=== PATIENT | female | born 1945 | race Caucasian/White ===

== ENCOUNTER 2018-02-21 05:21 | Inpatient (IN) ==
[2018-02-21] MEDS ORDERED: Metoprolol Tartrate 25 MG Tablet PO ONE (05:38)
[2018-02-21] MEDS ORDERED: Chlorhexidine Gluconate 2% 1 Pack (2 Cloths) TOPICAL ONE (05:38)
[2018-02-21] MEDS ORDERED: Chlorhexidine 4% Topical 120 APPLIC/120 ML Bottle TOPICAL SCH (05:45)
[2018-02-21] MEDS ORDERED: Tranexamic Acid Inj 800 MG in Sodium Chlor 0.9% Inj 100 ML IV.SIG SCH ×2 (06:00→08:44)
[2018-02-21] MEDS ORDERED: ceFAZolin 2 GM Premix Inj 2 GM/50 ML PIGGYBACK IV.SIG SCH (06:00)
[2018-02-21] MEDS ORDERED: Sodium Chlor 0.9% Inj 500 ML IV.SIG SCH (06:00)
[2018-02-21] MEDS ORDERED: Lidocaine PF 1% Inj 5 ML Vial ONE (06:16)
[2018-02-21] MEDS ORDERED: Propofol Inj 500 MG/50 ML Vial ONE ×2 (06:20→06:21)
[2018-02-21] MEDS ORDERED: fentaNYL Citrate Inj 100 MCG/2 ML Ampul ONE (06:20)
[2018-02-21] MEDS ORDERED: Famotidine PF Inj 20 MG/2 ML Vial ONE (06:21)
[2018-02-21] MEDS ORDERED: fentaNYL Citrate Inj 250 MCG/5 ML Ampul ONE (06:47)
[2018-02-21] MEDS ORDERED: Tranexamic Acid Inj 0 MG in Sodium Chlor 0.9% Inj 100 ML IV.SIG ONE (06:57)
[2018-02-21] MEDS ORDERED: Acetaminophen 325 MG Tablet PO PRN (06:57)
[2018-02-21] MEDS ORDERED: Zolpidem Tartrate 5 MG Tablet PO PRN (06:57)
[2018-02-21] MEDS ORDERED: Post-op Orders (for Pharmacy) OTHER STA (06:57)
[2018-02-21] MEDS ORDERED: Bisacodyl 10 MG Supp RECTAL PRN (06:57)
[2018-02-21] MEDS ORDERED: Morphine Inj 4 MG/ML Vial IV.PUSH PRN (06:57)
[2018-02-21] MEDS ORDERED: Aluminum/Magnesium/Simethacone Susp 30 ML UDC PO PRN (06:57)
[2018-02-21] MEDS ORDERED: Ketorolac Inj 30 MG/ML (IVP) Vial IV.PUSH SCH (07:00)
[2018-02-21] MEDS ORDERED: Sodium Chlor 0.9% Inj 80 ML, Bupivacaine Liposo PF 1.3% Inj 20 ML P-ARTICULR SCH ×2 (07:00)
[2018-02-21] MEDS ORDERED: OMEGA PO SCH (09:00)
[2018-02-21] MEDS ORDERED: COENZYME Q10 75 MG PO SCH (09:00)
[2018-02-21] MEDS ORDERED: [UNRECOGNIZED DRUG - OTHER] PO SCH (09:00)
[2018-02-21] MEDS ORDERED: MV MN FA VIT K LYCOP LUT COQ10 PO SCH (09:00)
[2018-02-21] MEDS ORDERED: FATTY ACIDS PO SCH (09:00)
[2018-02-21] MEDS ORDERED: Hydroxychloroquine 200 MG Tablet PO SCH (09:00)
[2018-02-21] MEDS ORDERED: BETA CAROTENE 10000 UNIT PO SCH (09:00)
--- NOTE | 2018-02-21 09:28 | P.OP ---
- Preoperative Diagnosis (1) Primary osteoarthritis of right knee - Postoperative Diagnosis (1) Primary osteoarthritis of right knee Date of procedure: 02/21/18 Procedure: Right total knee arthroplasty using Rizwan Triathlon prosthesis (uncemented). Anesthesia: GETA, regional (Adductor canal block) Surgeon: Michael Matta MD Upholstery Tech: JAMAR Carbajal Estimated blood loss (mL): 250 Tourniquet time (min): 0 Pathology: none sent Operation and Findings: Indications and Findings: This 72-year-old woman has had progressive worsening of knee pain over the past 8 months with limited ability to ambulate to less than 30 minutes. She has difficulty standing from a seated position and difficulty ascending and descending's stairs. She has noted a progressive valgus deformity in her knee. She has not responded to conservative measures including anti-inflammatory agents analgesics, activity modification, exercise and ambulatory aids. Physical findings showed genu valgum on the right with crepitation on range of motion, lateral laxity and an intra-articular effusion. There is tenderness on motion and tenderness to palpation in the medial and lateral compartments. X-rays showed significant arthritis in the right knee with loss of articular cartilage to about a millimeter on the PA flexion view with medial lateral and patellofemoral osteophytes. There was some lateral eburnation. Physical findings showed Operative findings: There was tricompartmental arthritis with osteophytes in all compartments and areas of loss of articular cartilage in the medial, lateral and patellofemoral compartments. There is exposed subchondral bone medially and laterally. There seem to be more degeneration laterally The prosthesis used was a Rizwan Triathlon prosthesis. The femur was a size 4, cruciate retaining, uncemented. The tibial baseplate was a size 4 Tritanium with a cruciate retaining 11 mm X3 polyethylene spacer. The patella was a size 32 mm asymmetric Tritanium backed. The patient was brought to the clean-air operating suite after administration of a regional anesthetic by adductor canal block. A spinal anesthetic was administered. The position was supine with a small bolster under the hip on the operative side. A pneumatic tourniquet was applied to the upper thigh. The lower extremity was prepped with alcohol, Hibiclens and ChloraPrep and draped in the usual manner with the knee draped free. An appropriate timeout procedure was carried out. An incision was made from about 3 fingerbreadths above the superior medial pole of patella down the tibial tubercle on the medial side. The incision was deepened through the subcutaneous tissue to the retinacular structures which were exposed medially and laterally. A medial retinacular incision was made from the superior medial pole of patella down the tibial tubercle and up into the quadriceps tendon, splitting it longitudinally in the medial one third. The patella was reflected. The infrapatellar fat pad was debulked. The anterior cruciate ligament was excised. Medial and lateral meniscectomies were initiated. Fenestrations were made in the distal femur and proximal tibia for intramedullary referencing guides. The distal femoral cutting guide and jig were assembled for a 5, 8 mm cut. When this was fit into position,the cutting block was stabilized with pins. The jig was removed. The distal femoral cut was completed with the oscillating saw. The sizing guide was positioned in place along Whitesides line and the epicondylar axis and stabilized with pins. The femoral size was determined as noted above. The 4-in-1 cutting block was positioned in place. Anterior and posterior cuts were made followed by posterior and anterior chamfer cuts taking care to prevent injury to ligamentous structures. Osteophytes were trimmed from the distal femur. A bone plug was placed into the fenestration of the distal femur. The proximal tibia was exposed. The medial and lateral meniscectomies were completed. The proximal tibial cutting guide was positioned in place and stabilized with a pin for rotation. The depth of cut was verified with a stylus off the high side. The cutting block was stabilized with pins. The jig was removed. The depth of cut was verified and adjusted appropriately with the use of the spacer block. The proximal tibial cut was made with the oscillating saw taking care to prevent injury to neurovascular and ligamentous structures. Proximal tibial bone was removed. Local anesthetic was administered with Exparel in the posterior capsule. The tibial baseplate trial was positioned in place. After verifying the appropriate size, the base plate trial was positioned in place along with its spacer. The femoral component was impacted into place. The alignment was checked. There was some relative medial laxity compared to the lateral side. A recut of the tibia allowed for better flexion. With an [address] and trial prostheses in place, pie crusting of the iliotibial band was carried out in the usual manner. This improved the stability substantially. The tibial baseplate was pinned in place on the tibia. Attention was directed to the patella. The patella drill guide was positioned in place for the appropriate sized patella. Patellar drilling was then carried out. The trial patella was positioned in place. The knee was taken through a range of motion which was easily 0 extension to 145 degrees. The patella trial was removed. The femoral drill holes were made. The femoral trials were removed. The tibial spacer was removed. A bone plug was placed into the proximal tibia. The tibial punch was impacted through the proximal tibial punch guide. This was all removed followed by placement of the tibial drill guide. The tibial drill holes were made. The guide was removed. The cut ends of bone were cleaned with pulse lavage. The tibial baseplate was impacted into place and seated appropriately. The spacer was inserted. The the femoral component was impacted into place and seated appropriately. The patella component was seated with the patellar vice and tightened appropriately. The knee was taken through a range of motion which was comparable to the previous range of motion with excellent stability in flexion and extension and appropriate patellofemoral tracking. The remainder of the Exparel was injected throughout the knee as a local anesthetic. Drains were brought out the superior lateral aspect of the suprapatellar pouch. Wound closure commenced using 0 Vicryl interrupted [id number] sutures for the capsular and fascial structures, 2-0 Vicryl interrupted simple sutures with buried knots for the subcutaneous tissues and 4-0 Monocryl, continuous subcuticular closure for the skin. The wound was dressed with Dermabond Prineo followed by a dry sterile dressing. Sterile soft roll with a cooling pad and Low bandage from the base of the toes to mid thigh were applied. Patient was transferred from the operating room to the recovery room in satisfactory condition having tolerated procedure well. Counts were correct. Specimens: None. Estimated blood loss: 250 milliliters
--- NOTE | 2018-02-21 09:30 | P.DCO ---
- Physical Therapy Physical Therapy: Gait training Knee: Total knee, Protocol: Right, Gait training, Full weight bearing Right Lower Extremity Weight Bearing: Weight bearing as tolerated Right Lower Extremity Range of Motion: Active ROM (Active, active assisted and passive range of motion. Range of motion goal is 0 degrees extension to 135 degrees of flexion.) - Nursing Nursing: Dressing changes Dressing changes: Other (Do not remove Dermabond Prineo (the tape that is directly on the wound).Leave the Optifoam dressing in place for 7 days. After this, daily dressing changes will be done taking care to avoid injuring or removing the Dermabond Prineo.) - Certification Need for Home Health services: I have seen patient Traci Ramos on 02/21/18. My clinical findings support the need for the requested home health care services because: Need for Home Health Services: Limited mobility due to disease progression, Limited ability to care for self, High risk of falls Homebound Certification: I certify that my clinical findings support that this patient is homebound because: Homebound Certification: Post-op weakness, Unsteady gait/balance, Unsafe to leave home unassisted
[2018-02-21] MEDS ORDERED: *morphine SULFATE 10 MG/ML PERIprocedure ONLY ONE ×3 (10:06→10:25)
--- NOTE | 2018-02-21 10:20 | XR ---
EXAM DATE: 02/21/2018 10:16 AM EST AGE/SEX: 72 years / Female INDICATIONS: Post right total knee arthroplasty CLINICAL DATA: This is the patient's initial encounter. Patient reports that signs and symptoms have been present for 1 day and indicates a pain score of Nonresponsive. MEDICAL/SURGICAL HISTORY: Non-responsive. Non-responsive. COMPARISON: No prior exams available for comparison. FINDINGS: There is a knee prosthesis in place. There is good position of the prosthesis with the bony structure s. Postsurgical changes are demonstrated. The bony structures are grossly intact. CONCLUSION: Good position and alignment on this postoperative study. Electronically signed by: Flash Goodman MD Board Certified Radiologist 02/21/2018 10:19 AM EST
[2018-02-21] MEDS: Ketorolac Inj 30 MG/ML (IVP) Vial IV.PUSH SCH ×3 (10:45→22:02)
[2018-02-21] MEDS: Hydroxychloroquine 200 MG Tablet PO SCH (11:52)
[2018-02-21] MEDS ORDERED: ceFAZolin Inj 1 GM in Sodium Chlor 0.9% Inj 100 ML IV.SIG SCH (13:00)
[2018-02-21] MEDS: ceFAZolin 1 GM Premix Inj 1 GM/50 ML PIGGYBACK IV.SIG SCH ×2 (13:11→18:50)
--- NOTE | 2018-02-21 17:54 | P.CON ---
History of Present Illness Service: [facility] Consult date: 02/21/18 Requesting Physician: Michael Matta Reason for Consult: Medical management Primary Care Provider: Lam An MD Chief Complaint: Knee surgery History of Present Illness: 72-year-old female with past medical history significant for osteoarthritis, GERD, hypercholesteremia, vertigo, Sjgren syndrome and thyroid adenoma admitted 02/21 for total right knee arthroplasty by Dr. Ocampo. [facility] has been consulted to assist with medical management during her stay. Patient is seen and examined sitting up in bed in no acute distress with daughter at bedside. She reports she has been up now 3 times, her pain is well controlled. She endorses dizziness, states this is not her normal vertigo, also complains of feeling sleepy. She has been able to eat, but not very hungry, complains of scratchy throat. She also reports feeling like her food is getting stuck and points to epigastric area. Denies any nausea, vomiting, cough, SOB, fevers chills, or dysuria. Voices no other acute concerns at this moment. Review of Systems All other systems reviewed negative except as stated in HPI PMFSH - History History Provided By: Patient - Medical History Medical History: Medical History (Last Updated 02/21/18 @ 18:17 by Prabhu Pederson) Hypothyroidism Arthritis Dental bridge present GERD (gastroesophageal reflux disease) High cholesterol Sjogrens syndrome Vertigo Wears glasses - Surgical History Surgical History: Surgical History (Last Reviewed 02/21/18 @ 18:18 by Prabhu Pederson) H/O eye surgery H/O medial meniscus repair of left knee H/O shoulder surgery Hx of tonsillectomy Status post excision of thyroid adenoma - Social History I have reviewed the patient's Social History: Yes - Tobacco History Second Hand Smoke Exposure: No Tobacco Use In Past 30 Days: No Smoking Status: Never smoker - Alcohol History How Often Do You Have a Drink Containing Alcohol: Never - Substance Use History Substance History: No History of Abuse - Travel History Recent Travel in the [place] Within the Last 8 Weeks: Yes Recent Travel Out of the Country Within the Last 8 Weeks: No - Immunization History Hx Influenza Vaccine This Season: No Medications and Allergies Active Medications: Active Medications Acetaminophen (Tylenol) 650 mg PO Q6H PRN PRN Reason: Pain Less Than 3 On Scale Hydrocodone Bitart/Acetaminophen ([place] 7.5/325) 1 tab PO Q4H PRN PRN Reason: PAIN SCALE 4 TO 6 MODERATE Last Admin: 02/21/18 15:15 Dose: 1 tab Hydrocodone Bitart/Acetaminophen ([place] 7.5/325) 2 tab PO Q6H PRN PRN Reason: PAIN SCALE 7 TO 10 SEVERE Al Hydrox/Mg Hydrox/Simethicone (Mag-Al Plus Susp Liq) 30 ml PO Q6H PRN PRN Reason: INDIGESTION Al Hydroxide/Mg Hydroxide (Milk Of Magnesia Liq) 30 ml PO BID PRN PRN Reason: Mild Constipation Ascorbic Acid (Vitamin C) 1,000 mg PO DAILY [facility] Aspirin (Aspirin Chew) 81 mg PO BID [facility] Last Admin: 02/21/18 10:45 Dose: 81 mg Bisacodyl (Dulcolax Supp) 10 mg RECTAL DAILY PRN PRN Reason: SEVERE CONSITIPATION Chlorhexidine Gluconate (Hibiclens 4% Topical) 1 applicatio TOPICAL ONCE [facility] Stop: 02/25/18 05:44 Last Admin: 02/21/18 05:45 Dose: 1 applicatio Diphenhydramine HCl (Benadryl) 25 mg PO Q6H PRN PRN Reason: ITCHING Hydroxychloroquine Sulfate (Plaquenil) 200 mg PO DAILY [facility] Last Admin: 02/21/18 11:52 Dose: 200 mg Sodium Chloride (Ns Inj) 500 mls @ 30 mls/hr IV.SIG .Q10H [facility] Last Admin: 02/21/18 06:19 Dose: Not Given Lactated Ringer's (Lr 1000 Ml Inj) 1,000 mls @ 30 mls/hr IV.SIG .Q24H [facility] Stop: 02/22/18 05:44 Last Admin: 02/21/18 05:45 Dose: 30 mls/hr Cefazolin Sodium/Dextrose (Ancef 2 Gm Premix Inj) 2 gm in 50 mls @ 100 mls/hr IV.SIG CLERICAL ADVISER [facility] Stop: 02/25/18 05:59 Last Infusion: 02/21/18 07:33 Dose: Infused Lactated Ringer's (Lr 1000 Ml Inj) 1,000 mls @ 80 mls/hr IV.CONT .[id number] [facility] Last Admin: 02/21/18 10:39 Dose: Not Given Cefazolin Sodium/Dextrose (Ancef 1 Gm Premix Inj) 1 gm in 50 mls @ 200 mls/hr IV.SIG Q6H [facility] Stop: 02/22/18 01:14 Last Admin: 02/21/18 13:11 Dose: 200 mls/hr Ketorolac Tromethamine (Toradol Inj) 15 mg IV.PUSH Q6H [facility] Stop: 02/23/18 04:01 Last Admin: 02/21/18 10:45 Dose: 15 mg Lactulose (Lactulose Liq) 30 ml PO DAILY PRN PRN Reason: SEVERE CONSITIPATION Levothyroxine Sodium (Synthroid) 25 mcg PO DAILY@0600 [facility] Meclizine HCl (Antivert) 25 mg PO DAILY PRN PRN Reason: VERTIGO Miscellaneous Information ([facility]) 1 each OTHER UNSCH PRN PRN Reason: SEE LABEL COMMENTS Stop: 02/22/18 09:54 Morphine Sulfate (Morphine Inj) 2 mg IV.PUSH Q3H PRN PRN Reason: BREAKTHROUGH PAIN Multivitamins/Minerals (Theragran-M) 1 tab PO DAILY [facility] Ondansetron HCl (Zofran Odt) 4 mg PO Q6H PRN PRN Reason: NAUSEA OR VOMITING Pantoprazole Sodium (Protonix) 40 mg PO DAILY [facility] Senna/Docusate Sodium (Emlanie-Colace) 1 tab PO BID [facility] Sennosides (Senokot) 17.2 mg PO BID PRN PRN Reason: Moderate Constipation Sodium Chloride (Ns Flush) 2 ml IV.FLUSH BID [facility] Last Admin: 02/21/18 10:46 Dose: 2 ml Sodium Chloride (Ns Flush) 2 ml IV.FLUSH PRN PRN PRN Reason: FLUSH AFTER USING IV ACCESS Vitamin E (Vitamin E) 400 unit PO DAILY [facility] Zolpidem Tartrate (Ambien) 5 mg PO HS PRN PRN Reason: INSOMNIA Allergies Allergy/AdvReac Type Severity Reaction Status Date / Time No Known Allergies Allergy Verified 02/21/18 05:53 Home Medications Medication Instructions Recorded Confirmed Type ascorbic acid (vitamin C) [Vitamin 1,000 mg PO DAILY 02/07/18 02/21/18 History C] beta carotene 10,000 unit PO DAILY 02/07/18 02/21/18 History calcium carb,cit-mag cit,ox-D3 1 tab PO DAILY 02/07/18 02/21/18 History [Veto-Mag Complex] coenzyme Q10 [Ultra CoQ10] 75 mg PO DAILY 02/07/18 02/21/18 History diclofenac sodium 75 mg PO DAILY 02/07/18 02/21/18 History hydroxychloroquine 200 mg PO DAILY 02/07/18 02/21/18 History levothyroxine 25 mcg PO DAILY 02/07/18 02/21/18 History meclizine 25 mg PO DAILY PRN 02/07/18 02/21/18 History multivitamin with minerals 1 tab PO DAILY 02/07/18 02/21/18 History [Hair,Skin and Nails] zn-ft-QO-vit [id number]-[id number]-coQ10 1 tab PO DAILY 02/07/18 02/21/18 History [Daily Multivitamin] omega-3 fatty acids [Super [place]-3] 1,000 mg PO DAILY 02/07/18 02/21/18 History omeprazole 40 mg PO DAILY 02/07/18 02/21/18 History vitamin E 400 unit PO DAILY 02/07/18 02/21/18 History Physical Exam Vital signs: Vital Signs 02/21/18 05:40 02/21/18 06:20 02/21/18 09:55 Temperature 98.6 F 97.6 F Pulse Rate 74 74 99 H Respiratory Rate 16 13 Blood Pressure 136/83 144/69 H Pulse Oximetry 99 98 100 02/21/18 10:15 02/21/18 10:30 02/21/18 11:00 Temperature 97.8 F Pulse Rate 80 69 73 Respiratory Rate 15 12 12 Blood Pressure 132/68 127/67 122/64 Pulse Oximetry 93 L 97 97 02/21/18 11:56 02/21/18 12:00 02/21/18 16:00 Temperature 97.2 F L Pulse Rate 73 60 Respiratory Rate 18 18 16 Blood Pressure 148/79 H 120/58 L Pulse Oximetry 96 97 Intake & Output 02/20/18 02/21/18 02/21/18 18:59 06:59 18:59 Intake Total 1700 / 1700 Output Total 350 / 350 Balance 1350 / 1350 Weight 80.2 kg 28.5 kg Intake: IV 158 / 158 Cyklokapron Inj 800 MG In NS 108 / 108 Inj 100 ML @ 200 mls/hr IV.SIG ONCE [facility] Rx#:[id number] Ancef 2 GM Premix Inj 2 gm In 50 / 50 50 ml @ 100 mls/hr IV.SIG CLERICAL ADVISER [facility] Rx#:[id number] Anesthesia Amount 1542 / 1542 Output: Estimated Blood Loss 250 / 250 Wound Drainage 100 / 100 # 1 Right Knee Hemovac 100 / 100 Other: Weight On Admission 80.2 kg Narrative: GENERAL: Well nourished/developed female sitting up in bed in no acute distress. SKIN: Warm and dry. HEAD: Atraumatic. Normocephalic. EYES: Pupils equal and round. No scleral icterus. No injection or drainage. ENT: No nasal bleeding or discharge. Oropharynx with no edema or erythema. Mucous membranes pink and moist. NECK: Trachea midline. No JVD. CARDIOVASCULAR: Regular rate and rhythm. RESPIRATORY: No accessory muscle use. Clear to auscultation. Breath sounds equal bilaterally. GASTROINTESTINAL: Abdomen soft, non-tender, nondistended. + Bowel sounds MUSCULOSKELETAL: Extremities without clubbing or edema. Right knee with accordion drain and ADRIAN wrap in place. Dorsalis pedis pulse +, + sensation and movement. NEUROLOGICAL: Awake, alert, oriented x3. No obvious cranial nerve deficits. Motor grossly within normal limits. Five out of 5 muscle strength in the arms and legs. Normal speech. PSYCHIATRIC: Appropriate mood and affect; insight and judgment normal. Results - Labs Labs: Laboratory Results - last 24 hr 02/21/18 06:01 Blood Type A Positive Blood Type Recheck Required Antibody Screen Negative - Imaging Impressions Knee X-Ray 02/21/18 06:56 CONCLUSION: Good position and alignment on this postoperative study. Assessment and Plan - Plan 72-year-old female with past medical history significant for osteoarthritis, GERD, hypercholesteremia, vertigo, Sjgren syndrome and thyroid adenoma admitted 02/21 for total right knee arthroplasty by Dr. Ocampo. [facility] has been consulted to assist with medical management during her stay. Osteoarthritis -s/p total right knee arthroplasty by Dr. Ocampo 02/21 -Precautions per orthopedic services -Pain control with [place] -PT consult GERDcontinue Protonix Vertigocontinue home dose meclizine as needed Hypothyroidism, chroniccontinue levothyroxine Dizziness with Hx vertigo - Likely secondary to pain medication, discussed safety ?dysphagia - Possible soreness due to ETT - Monitor if needed consult speech for evaluation - Continue PPI DVT prophylaxisaspirin twice daily per orthopedic services. Thank you for this consultation, will continue to follow along. Discussed Condition With: Patient and daughter at bedside.
[2018-02-21] MEDS: Senna/Docusate Sodium 8.6/50 MG Tablet PO SCH (21:16)
[2018-02-22] MEDS: ceFAZolin 1 GM Premix Inj 1 GM/50 ML PIGGYBACK IV.SIG SCH (00:16)
[2018-02-22] MEDS: Ketorolac Inj 30 MG/ML (IVP) Vial IV.PUSH SCH ×4 (04:05→22:18)
[2018-02-22 04:18] LABS: Hematocrit 31.4 % (35.0-46.0); Hemoglobin 10.6 gm/dL (11.6-15.3)
--- NOTE | 2018-02-22 06:04 | P.PNOP ---
Subjective Interval history: Postop day #1 She is doing relatively well. She has been up to the bathroom without much difficulty. She has questions about imitations and activities. She is starting to get some pain since the block effect is abating. Physical therapy reports that the ambulation distance was 30 feet. The range of motion was 0 degrees of extension to 100 degrees of flexion. Physical Exam Vital signs: Vital Signs 02/21/18 06:20 02/21/18 09:55 02/21/18 10:15 Temperature 97.6 F Pulse Rate 74 99 H 80 Respiratory Rate 13 15 Blood Pressure 144/69 H 132/68 Pulse Oximetry 98 100 93 L 02/21/18 10:30 02/21/18 11:00 02/21/18 11:56 Temperature 97.8 F Pulse Rate 69 73 Respiratory Rate 12 12 18 Blood Pressure 127/67 122/64 Pulse Oximetry 97 97 02/21/18 12:00 02/21/18 16:00 02/21/18 18:50 Temperature 97.2 F L Pulse Rate 73 60 Respiratory Rate 18 18 18 Blood Pressure 148/79 H 120/58 L Pulse Oximetry 96 97 02/21/18 19:30 02/22/18 00:00 02/22/18 03:45 Temperature 97.7 F 97.7 F 98 F Pulse Rate 69 79 66 Respiratory Rate 18 18 18 Blood Pressure 122/63 115/56 L 110/54 L Pulse Oximetry 95 96 98 Intake & Output 02/21/18 02/21/18 02/22/18 06:59 18:59 06:59 Intake Total 2710 / 2710 100 / 100 Output Total 350 / 350 100 / 100 Balance 2360 / 2360 0 / 0 Weight 80.2 kg 28.5 kg Intake: IV 208 / 208 100 / 100 Cyklokapron Inj 800 MG In NS 108 / 108 Inj 100 ML @ 200 mls/hr IV.SIG ONCE [facility] Rx#:[id number] Ancef 1 GM Premix Inj 1 gm In 50 / 50 100 / 100 50 ml @ 200 mls/hr IV.SIG Q6H [facility] Rx#:[id number] Ancef 2 GM Premix Inj 2 gm In 50 / 50 50 ml @ 100 mls/hr IV.SIG GUIDE TRAVEL [facility] Rx#:[id number] Oral 960 / 960 Anesthesia Amount 1542 / 1542 Output: Estimated Blood Loss 250 / 250 Wound Drainage 100 / 100 100 / 100 # 1 Right Knee Hemovac 100 / 100 100 / 100 Other: # Voids 2 Weight On Admission 80.2 kg Narrative: She is resting comfortably, supine in bed. The dressing is dry and intact. Her neurovascular status is intact. She is attended by her daughter. Results - Labs CBC & Chem 7: 02/22/18 03:30 Laboratory Results - last 24 hr 02/21/18 02/22/18 06:01 03:30 Hgb 10.6 L Hct 31.4 L Blood Type A Positive Blood Type Recheck Required Antibody Screen Negative - Imaging Impressions Knee X-Ray 02/21/18 06:56 CONCLUSION: Good position and alignment on this postoperative study. - Procedures Right total knee arthroplasty using Rizwan Triathlon prosthesis (uncemented) on 02/21/2018. Assessment and Plan - Ortho Post Op Day # 1 - Problem List (1) Status post total right knee replacement not using cement Code(s): Z96.651 - Presence of right artificial knee joint Status: Acute Onset Date: ~02/21/18 Plan: Continue postop care and PT. Discussed the findings with her as well as plans. - Assessment and Plan Condition: Good. Orthopedically stable. DVT prophylaxis: TEDs, aspirin, sequentials. Discharge plans: Home with home health care. An appointment was scheduled through the office. Prescriptions: [place] 7.5/325; Patient is having significant pain caused by a total knee arthroplasty which will last more than 3 days. Trial of Tylenol has not helped. I believe that it is medically necessary to treat patients pain because it is affecting patients ability to participate in postoperative rehabilitation and perform activities of daily living in a comfortable and efficient manner. I have checked the [facility] database prior to completing the prescription.
--- NOTE | 2018-02-22 06:41 | P.DS ---
Date of admission: 02/21/18 07:16 Primary care physician: Lam An MD Attending physician on discharge: Michael Matta Anticipated date of discharge: 02/23/18 Brief History from admission: This 72-year-old woman has had a long history of Sjogren's disease and osteoarthritis with a progressive increase in pain in the right knee along with a progressive valgus deformity. She has difficulty with walking and activities of daily living including ascending and descending stairs, standing from a seated position and vice versa and walking in general. She has not responded to conservative measures including anti-inflammatory agents, analgesics, activity modification and exercise. She has a valgus deformity with tenderness on motion and crepitation on motion. There is limited motion as well. Her gait was antalgic. Radiographic findings showed significant loss of articular cartilage to virtually [id number] osteophytes throughout the knee. There was some eburnation. DS: Diagnosis - Discharge Diagnosis (1) Status post total right knee replacement not using cement Status: Acute Diagnosis: Principal (2) Primary osteoarthritis of right knee Status: Chronic Diagnosis: Principal DS: Medications - Discharge Medications Prescriptions: hydrocodone-acetaminophen 1 tab PO Q4H PRN 7 Days #42 tab PRN Reason: Pain, Severe DS: Summary Hospital Course: The patient was admitted as noted above. The above noted operative procedure was carried out that day. Preoperatively prophylactic antibiotics were administered Ancef according to protocol. These were continued postoperatively. The patient also received tranexamic acid to help with hemostasis according to protocol. In the postanesthesia care unit mechanical methods of DVT prophylaxis were initiated in the form of SARAI stockings and sequentials. Physical therapy was initiated on the day of surgery. On postoperative day #1 physical therapy continued. DVT prophylaxis with aspirin 81 mg was initiated at this time. The patient continued physical therapy throughout the hospitalization. The distance walked and range of motion improved throughout the hospitalization. The patient was discharged on postoperative day 2 with the disposition being to home with home health care. An appointment for follow-up was made prior to admission. - Time Spent with Patient Total time spent providing and/or coordinating discharge services: Less than 30 minutes - Quality: VTE Deep Vein Thrombosis/Pulmonary Embolism Present on Admission: No Exam Vital signs: Vital Signs 02/21/18 09:55 02/21/18 10:15 02/21/18 10:30 Temperature 97.6 F Pulse Rate 99 H 80 69 Respiratory Rate 13 15 12 Blood Pressure 144/69 H 132/68 127/67 Pulse Oximetry 100 93 L 97 02/21/18 11:00 02/21/18 11:56 02/21/18 12:00 Temperature 97.8 F 97.2 F L Pulse Rate 73 73 Respiratory Rate 12 18 18 Blood Pressure 122/64 148/79 H Pulse Oximetry 97 96 02/21/18 16:00 02/21/18 18:50 02/21/18 19:30 Temperature 97.7 F Pulse Rate 60 69 Respiratory Rate 18 18 Blood Pressure 120/58 L 122/63 Pulse Oximetry 97 95 02/22/18 00:00 02/22/18 03:45 Temperature 97.7 F 98 F Pulse Rate 79 66 Respiratory Rate 18 18 Blood Pressure 115/56 L 110/54 L Pulse Oximetry 96 98 Intake & Output 02/21/18 02/21/18 02/22/18 06:59 18:59 06:59 Intake Total 2710 / 2710 240 / 240 Output Total 350 / 350 100 / 100 Balance 2360 / 2360 140 / 140 Weight 80.2 kg 28.5 kg 95.5 kg Intake: IV 208 / 208 100 / 100 Cyklokapron Inj 800 MG In NS 108 / 108 Inj 100 ML @ 200 mls/hr IV.SIG ONCE LISHA Rx#:[id number] Ancef 1 GM Premix Inj 1 gm In 50 / 50 100 / 100 50 ml @ 200 mls/hr IV.SIG Q6H LISHA Rx#:[id number] Ancef 2 GM Premix Inj 2 gm In 50 / 50 50 ml @ 100 mls/hr IV.SIG COAL CUTTING MACHINE OPERATOR LISHA Rx#:[id number] Oral 960 / 960 140 / 140 Anesthesia Amount 1542 / 1542 Output: Estimated Blood Loss 250 / 250 Wound Drainage 100 / 100 100 / 100 # 1 Right Knee Hemovac 100 / 100 100 / 100 Other: # Voids 2 2 # Bowel Movements 0 Weight On Admission 80.2 kg Narrative: She is resting comfortably, supine in bed. The dressing is dry and intact. Her neurovascular status is intact. She is attended by her daughter. Results Procedures completed during hospitalization: Right total knee arthroplasty using [place] Triathlon prosthesis (uncemented) on 02/21/2018. Labs on day of discharge: Labs from last 24 hours 02/22/18 02/21/18 03:30 06:01 Hgb 10.6 L Hct 31.4 L Blood Type A Positive Blood Type Recheck Required Antibody Screen Negative - Impressions ITS Impressions Knee X-Ray 02/21/18 06:56 CONCLUSION: Good position and alignment on this postoperative study. Discharge Plan - Discharge Disposition Patient Disposition: W/Home Health Service - Discharge Condition Condition: Stable - Discharge Order Discharge Orders: Discharge Order (Routine); Ordered 02/22/18 Ordered By: Michael Matta - Discharge Details Anticipated Discharge Date: 02/22/18 - Physicians Team Primary Care Provider: Lam An Attending Provider: Michael Matta Other Providers: Isaiah Colon ; Gabriel Rose MD - Rxs /Orders / Referrals /Forms Prescriptions: New aspirin 81 mg Tablet,Chewable 81 mg PO BID RF: 0 hydrocodone-acetaminophen 7.5-325 mg Tablet 1 tab PO Q4H PRN (Reason: Pain, Severe) 7 Days Qty: 42 RF: 0 Continue ascorbic acid (vitamin C) [Vitamin C] 1,000 mg Tablet 1,000 mg PO DAILY beta carotene 10,000 unit Capsule 10,000 unit PO DAILY calcium carb,cit-mag cit,ox-D3 [Veto-Mag Complex] 300 mg-150 mg- 400 unit Tablet 1 tab PO DAILY coenzyme Q10 [Ultra CoQ10] 75 mg Capsule 75 mg PO DAILY diclofenac sodium 75 mg Tablet,Delayed Release (Dr/Ec) 75 mg PO DAILY hydroxychloroquine 200 mg Tablet 200 mg PO DAILY levothyroxine 25 mcg Tablet 25 mcg PO DAILY meclizine 25 mg Tablet 25 mg PO DAILY PRN (Reason: Vertigo) multivitamin with minerals [Hair,Skin and Nails] Tablet 1 tab PO DAILY az-fz-NB-vit C-lzqhu-kft-coQ10 [Daily Multivitamin] 200-100-500 mcg Capsule 1 tab PO DAILY omega-3 fatty acids [Super [place]-3] 1,000 mg Capsule 1,000 mg PO DAILY omeprazole 40 mg Capsule,Delayed Release(Dr/Ec) 40 mg PO DAILY vitamin E 400 unit Capsule 400 unit PO DAILY Referrals: Lam An MD [Primary Care Provider] - See Instructions Michael Matta MD [Physician] - See Instructions - Discharge Instructions Patient Printed Instructions: Hydrocodone/Acetaminophen (By mouth), Aspirin ( By mouth), How to Choose and Use a Walker (GEN), Knee Replacement (DC) Additional Instructions: Rx for [place] 7.5/325mg (42) given at time of discharge. Take medications as prescribed. Full weight bearing Follow up with Dr Matta as previously discussed. Home Health Care to be provided by: Michael. [phone] - Post Discharge Care Plan Care Plan Goals: Discharge Care Plan Goals for Total Knee Replacement You have undergone knee replacement surgery. Your doctor replaced your painful joint with an artificial joint to relieve pain and restore movement. Here are some goals to help you heal well. Directions to Meet your Goals: 1. Activity & Exercises: * Take pain medicine as directed by your doctor. * Sit in chairs with arms. The arms make it easier for you to stand up or sit down. * Dont sit for more than 30 to 45 minutes at one time. * Nap if you are tired, but dont stay in bed all day. * Sleep with a pillow under your ankle, not your knee. Be sure to change the position of your leg during the night. * Wear the support stockings you were given in the hospital as directed by your surgeon. 2. Prevent Falls/Injury: The casarez to successful recovery is movement with walking and exercising your knee as directed by your doctor. * Arrange your household to keep the items you need handy. Keep everything else out of the way. * Remove items that may cause you to fall, such as throw rugs and electrical cords. * Use nonslip bath mats, grab bars, an elevated toilet seat, and a shower chair in your bathroom * Sit on a shower stool or chair when you shower to keep from falling. * Until your balance, flexibility, and strength improve, use a cane, crutches, a walker, handrails, or someone to help you. * Keep your hands free by using a backpack, denise pack, apron, or pockets to carry things * Walk up and down stairs with support. Try one step at a time. Use the railing if possible. * Dont drive until your doctor says its OK. * Dont drive while you are taking opioid pain medicine. 3. Precautions: * Prevent infection. Any infection will need to be treated immediately. Call your doctor right away if you think you might have an infection. * Tell your dentist that you have an artificial joint and take antibiotics as prescribed before any dental work. * Tell all your healthcare providers about your artificial joint before any medical procedure. * Maintain a healthy weight. Get help to lose any extra pounds. Added body weight puts stress on the knee. * Your medications may include blood-thinning medicine to prevent blood clots or antibiotics to prevent infection-prevent any falls or cuts 4. Incision Care: * Prevent infection by washing your hands often. If an infection occurs, it will need to be treated right away. * Call your doctor right away if you think you may have an infection. Symptoms include a fever or an incision that leaks white, green, or yellow fluid. * Don't soak your incision in water until your doctor says its OK. This means no hot tubs, bathtubs, or swimming pools. * Follow your doctor's instructions for changing the dressing. * Dont rub the incision, or apply creams or lotions to it. * If you notice any redness or drainage around the bandage site, contact your surgeon's office immediately. 5. Follow-Up: Do Not miss your follow-up appointment. Keep up with all your appointments and yearly check ups When to call your doctor: Call your doctor right away if you have: Fever of 100.4F (38C) or higher, or as directed by your doctor Shaking chills Stiffness, or inability to move the knee Increased swelling in your leg Increased redness, tenderness, or swelling in or around the knee incision Drainage from the knee incision Increased knee pain Call 911: Call 911 right away if you have: Chest pain Shortness of breath Any pain or tenderness in your calf
[2018-02-22] MEDS: Multivitamin/Minerals Therapeutic Tablet PO SCH (08:02)
[2018-02-22] MEDS: Ascorbic Acid 500 MG Tablet PO SCH (08:03)
[2018-02-22] MEDS: Senna/Docusate Sodium 8.6/50 MG Tablet PO SCH ×2 (08:04→20:07)
[2018-02-22] MEDS: Hydroxychloroquine 200 MG Tablet PO SCH (10:31)
--- NOTE | 2018-02-22 14:56 | P.PN ---
Subjective Interval history: Follow-up visit for total right knee arthroplasty. Patient seen and examined sitting up in bed in no acute distress. Continues to complain of right knee pain especially today after therapy. Denies any fevers, chills, nausea, vomiting or diarrhea. Complains of GERD, states pantoprazole does not work as well as her omeprazole from home. Daughter to bring this in tonight. Likely discharge home tomorrow. Physical Exam Vital signs: Vital Signs 02/21/18 16:00 02/21/18 18:50 02/21/18 19:30 Temperature 97.7 F Pulse Rate 60 69 Respiratory Rate 18 18 18 Blood Pressure 120/58 L 122/63 Pulse Oximetry 97 95 02/22/18 00:00 02/22/18 03:45 02/22/18 08:00 Temperature 97.7 F 98 F 97.6 F Pulse Rate 79 66 78 Respiratory Rate 18 18 18 Blood Pressure 115/56 L 110/54 L 110/57 L Pulse Oximetry 96 98 93 L 02/22/18 11:43 Temperature 98.1 F Pulse Rate 69 Respiratory Rate 18 Blood Pressure 121/58 L Pulse Oximetry 93 L Intake & Output 02/21/18 02/22/18 02/22/18 18:59 06:59 18:59 Intake Total 2710 / 2710 240 / 240 Output Total 350 / 350 100 / 100 Balance 2360 / 2360 140 / 140 Weight 28.5 kg 95.5 kg Intake: IV 208 / 208 100 / 100 Cyklokapron Inj 800 MG In NS 108 / 108 Inj 100 ML @ 200 mls/hr IV.SIG ONCE LISHA Rx#:[id number] Ancef 1 GM Premix Inj 1 gm In 50 / 50 100 / 100 50 ml @ 200 mls/hr IV.SIG Q6H LISHA Rx#:[id number] Ancef 2 GM Premix Inj 2 gm In 50 / 50 50 ml @ 100 mls/hr IV.SIG ASSOCIATE ACCOUNTANT LISHA Rx#:[id number] Oral 960 / 960 140 / 140 Anesthesia Amount 1542 / 1542 Output: Estimated Blood Loss 250 / 250 Wound Drainage 100 / 100 100 / 100 # 1 Right Knee Hemovac 100 / 100 100 / 100 Other: # Voids 2 2 Date of Last Bowel Movement 02/20/18 # Bowel Movements 0 Narrative: GENERAL: Well nourished/developed female sitting up in bed in no acute distress. SKIN: Warm and dry. HEAD: Atraumatic. Normocephalic. EYES: Pupils equal and round. No scleral icterus. No injection or drainage. ENT: No nasal bleeding or discharge. Mucous membranes pink and moist. NECK: Trachea midline. CARDIOVASCULAR: Regular rate and rhythm. RESPIRATORY: No accessory muscle use. Clear to auscultation. Breath sounds equal bilaterally. GASTROINTESTINAL: Abdomen soft, non-tender, nondistended. Hypoactive. MUSCULOSKELETAL: Extremities without clubbing or edema. Right knee with dry and intact dressing, minimal erythema, edema noted throughout knee and upper leg. Dorsalis pedis pulse +, + sensation and movement. NEUROLOGICAL: Awake, alert, oriented x3. No obvious cranial nerve deficits. Motor grossly within normal limits. Normal speech. PSYCHIATRIC: Appropriate mood and affect; insight and judgment normal. Results - Labs CBC & Chem 7: 02/22/18 03:30 Laboratory Results - last 24 hr 02/22/18 03:30 Hgb 10.6 L Hct 31.4 L - Procedures Right total knee arthroplasty using [place] Triathlon prosthesis (uncemented) on 02/21/2018. Assessment and Plan - Plan 72-year-old female with past medical history significant for osteoarthritis, GERD, hypercholesteremia, vertigo, Sjgren syndrome and thyroid adenoma admitted 02/21 for total right knee arthroplasty by Dr. Ocampo. [facility] has been consulted to assist with medical management during her stay. Osteoarthritis -s/p total right knee arthroplasty by Dr. Ocampo 02/21 -Precautions per orthopedic services -Pain control with [place] and scheduled Toradol -PT recommending home with home health PT GERDDC Protonix, daughter to bring in home omeprazole Vertigocontinue home dose meclizine as needed Hypothyroidism, chroniccontinue levothyroxine DVT prophylaxisaspirin twice daily per orthopedic services. Patient medically stable. [facility] will sign off, please reconsult if needed. Discussed Condition With: Patient and RN. Discharge Planning: Plans for discharge tomorrow with home health.
[2018-02-22] MEDS ORDERED: OMEPRAZOLE 40 MG PO SCH (21:00)
[2018-02-23] MEDS: Ketorolac Inj 30 MG/ML (IVP) Vial IV.PUSH SCH (03:18)
[2018-02-23 06:07] LABS: Hematocrit 30.1 % (35.0-46.0); Hemoglobin 10.3 gm/dL (11.6-15.3)
[2018-02-23] MEDS: Hydroxychloroquine 200 MG Tablet PO SCH (08:36)
[2018-02-23] MEDS: Ascorbic Acid 500 MG Tablet PO SCH (08:36)
[2018-02-23] MEDS: Multivitamin/Minerals Therapeutic Tablet PO SCH (08:36)
[2018-02-23] MEDS: Senna/Docusate Sodium 8.6/50 MG Tablet PO SCH (08:37)
[2018-02-23 10:10] VITALS: BP 123/58; PULSE 82; RESP 14; TEMP 98.6; O2SAT 99
== END 2018-02-23 12:43 | disposition home health service (06) | DRG 470 ==
LOC: HSDC 05:21 → EDSTATUS 07:00 → HSDI 07:16 → N06 11:32
PROVIDERS: ADMIT Orthopaedic Surgery; ATTEND Orthopaedic Surgery
CPT/HCPCS: 73560; 85014; 85018; 86850; 86900; 86901; 94150; 97110; 97116; 97150; 97162; 97166; 97535; C1776; C9290; J0131; J0690; J1580; J1885; J2270; J2704; J2765; J2795; J3010; J7120